=== PATIENT | female | born 1995 | race Caucasian/White ===

== ENCOUNTER → 2019-12-24 | Outpatient (CLI) | payer OTHER ==
[~2019-12-24] MED LIST: GADOBENATE DIMEGLUMINE 1 ML IV ONE; IOPAMIDOL 300 MG/ML 15ML VIAL IT ONE; LIDOCAINE HCL 1% LOCAL INJ 20 ML VIAL ONE
--- NOTE | 2019-12-24 11:20 | Diagnostic Imaging Report ---
PROCEDURE: Fluoroscopically guided arthrogram of the right hip Procedural Personnel Attending physician(s): Allan Vasquez MD Fellow physician(s): None Resident physician(s): None Advanced practice provider(s): None Pre-procedure diagnosis: Right hip pain requiring MRI arthrogram for evaluation for possible labral tear Post-procedure diagnosis: Same Indication: Right hip pain requiring MRI arthrogram possible labral tear Additional clinical history: None Complications: No immediate complications. IMPRESSION: Technically successful fluoroscopically guided right hip arthrogram PROCEDURE SUMMARY: - Fluoroscopically guided arthrogram of the right hip. - Patient to be transported to MRI PROCEDURE DETAILS: Pre-procedure Consent: Informed consent for the procedure including risks, benefits and alternatives was obtained and time-out was performed prior to the procedure. Preparation: The site was prepared and draped using maximal sterile barrier technique including cutaneous antisepsis. Anesthesia/sedation Level of anesthesia/sedation: Local 1% lidocaine Arthrogram [employer] images were obtained. Following local 1% lidocaine anesthesia, a 22 gauge spinal needle was advanced to the right hip. Intra-articular positioning was confirmed with injection of 1cc Isovue contrast material. Subsequently, 12cc of gadolinium arthrogram solution was administered to the joint (containing 8cc normal saline, 4cc Isovue, 0.1cc Multihance gadolinium based contrast). Radiation Dose Fluoroscopy time (minutes): 0.9 Reference air kerma (mGy): 7.8 Additional Details Additional description of procedure: None Equipment details: None Specimens removed: None Estimated blood loss (mL): Less than 10 Attestation Signer name: Allan Vasquez MD I attest that I was present for the entire procedure. I reviewed the stored images and agree with the report as written. Signed by: Allan Vasquez MD on 12/24/2019 11:16 AM
--- NOTE | 2019-12-24 12:55 | Diagnostic Imaging Report ---
TECHNIQUE: Magnetic resonance imaging of the pelvis was performed WITHOUT injected contrast. Magnetic resonance imaging of the right hip was performed after intra-articular injection of contrast. HISTORY: Pain in right hip, strain in muscle COMPARISON: None available. FINDINGS: Pelvis: No fractures or acute osseous abnormalities. No infiltrative bone marrow signal replacing abnormality. No joint malalignment or dislocation. Minimal joint space narrowing and subtle osteophytes at the pubic symphysis. Moderate degenerative disc changes at L5-S1. Muscle and tendons: Pelvic muscles are normal in size and signal. Visualized tendons are intact and unremarkable. No fluid in the greater trochanteric bursas. Soft tissues: Uterus and bilateral adnexa are unremarkable. Urinary bladder is unremarkable. Visualized portions of large and small bowel are grossly unremarkable. No pelvic or inguinal lymphadenopathy. Small focus of peripheral T1/T2 hypointensity with internal fat signal in the subcutaneous fat overlying the left hip, may represent injection granuloma or sequela of remote soft tissue injury. Right hip arthrogram: Subtle cam type morphology of the right femoral head/neck. Mild thinning and superficial fraying along the superior articular cartilage of the acetabulum. No focal full-thickness cartilage defect. Small tear along the anterior labrum with associated contrast extending into small para labral cyst. Additional fraying along the anterosuperior labrum without discrete tear. Limited evaluation of left hip on large field of view sequences however no large labral tear or discrete cartilage defect identified. IMPRESSION: 1. Small tear along the anterior labrum of the right hip with adjacent small para-labral cyst. Additional fraying along the anterosuperior labrum. 2. Associated subtle cam type morphology of the right femoral head/neck and superficial cartilage fraying along the superior right acetabulum. 3. No acute muscle or tendon abnormalities in the visualized pelvis. Signed by: Dr. Syed Gonzales M.D. on 12/24/2019 12:52 PM
== END ==
LOC: MRI 08:46
PROVIDERS: ATTEND Orthopaedic Surgery
DX: M25.551 Pain in right hip (principal); S76.011A Strain of muscle, fascia and tendon of right hip, initial encounter; S32.591A Other specified fracture of right pubis, initial encounter for closed fracture
CPT/HCPCS: 27093; 72195; 73722; 77002; 81025; A9577; J2001; Q9967